=== PATIENT | male | born 1950 | race Caucasian/White ===

== ENCOUNTER 2022-10-21 21:57 | Emergency (ER) | payer MEDICARE, OTHER, SELFPAY ==
[2022-10-21] VITALS (8 sets, daily range): BP systolic 133–168; BP diastolic 79–102; PULSE 34–87; RESP 18–22; TEMP 36.5; O2SAT 91–96; BMI 32.5
--- NOTE | 2022-10-21 22:11 | DI.RAD.S_ITS ---
PATIENT NAME: KENIA LANE : 1950 EXAM DATE: 10/21/2022 22:[address] JOYCE SHAFER D.O. CC: ED TEMP MODALITY: CR PATIENT TYPE: ER CONTRAST MEDIA: STATION ID: [id number] FLUORO TIME: PROCEDURE: XR CHEST 1V INDICATIONS: chest pain TECHNIQUE: One view of the chest was acquired. COMPARISON: None. FINDINGS: Surgical changes and devices: Postsurgical changes demonstrated in the mediastinum. Lungs and pleura: Lungs are clear. No pleural effusions or pneumothorax. Mediastinum: Mediastinal contours appear normal. Heart size is normal. Bones and chest wall: No suspicious bony lesions. Overlying soft tissues appear unremarkable. IMPRESSION: 1. No acute cardiopulmonary disease. Dictated by: Josh Graf M.D. on 10/21/2022 at 23:29 Approved by: Josh Graf M.D. on 10/21/2022 at 23:34
--- NOTE | 2022-10-21 22:19 | ED.ARRPALP ---
HPI - Arrhythmia/Palpitations General Chief Complaint: Arrhythmia/Palpitations Stated Complaint: irregular heart beat/low pulse Time Seen by Provider: 10/21/22 22:19 Source: patient Mode of arrival: Ambulatory History of Present Illness HPI narrative: 72-year-old male nonsmoker with history of aortic stenosis, atrial flutter/fib, bowel replacement, warfarin presents feeling a bit weak and having a low heart rate over the past week or so. He states that his symptoms seemed to largely start since he had his metoprolol changed. He states that about a week ago he had is Metoprolol changed from Tartrate to Succinate and soon thereafter he had an episode of Afib and was cardioverted at his cardiology office. He denies dizziness, or lightheadedness. Denies chest pain, shortness of breath or nausea. He is had no vomiting or diarrhea. He denies any other medication changes and is otherwise well and free of complaint Related Data Home Medications Medication Instructions Recorded Confirmed amlodipine 5 mg tablet 5 mg PO DAILY 08/22/21 08/22/21 aspirin 81 mg tablet,delayed 81 mg PO DAILY 08/22/21 08/22/21 release (Adult Aspirin Regimen) losartan 50 mg tablet 50 mg PO BID 08/22/21 08/22/21 metoprolol tartrate 50 mg tablet 50 mg PO BID 08/22/21 08/22/21 warfarin 3 mg tablet 3 mg PO DAILY 08/22/21 08/22/21 Previous Rx's Medication Instructions Recorded magnesium oxide 400 mg PO DAILY #30 caps 10/22/22 Allergies Allergy/AdvReac Type Severity Reaction Status Date / Time No Known Drug Allergies Allergy Unverified 08/22/21 14:58 Review of Systems Review of Systems Narrative: GENERAL: Denies chills, fatigue, malaise, fever, sweats. HEENT: Denies sinus pain, ear pain, sore throat, difficulty swallowing, dizziness. RESPIRATORY: Denies dyspnea, cough, wheezing, hemoptysis, sputum. CARDIOVASCULAR: See HPI GASTROINTESTINAL: Denies nausea, vomiting, abdominal pain, diarrhea, constipation, melena. : Denies dysuria, frequency, incontinence, hematuria, urinary retention. MUSCULOSKELETAL: denies weakness, joint pain, or bony pain SKIN: Denies rash, skin lesions, or other NEUROLOGIC: Denies weakness, headache, numbness, change in speech, confusion, seizures, incoordination. PSYCHIATRIC: No concerning psychosocial issues. 12 point review of systems is negative except for those stated above Patient History Social History Smoking Status: Never smoker Smoking Status: Never smoker Substance Use Type: does not use Exam Narrative Exam Narrative: GENERAL: [72] year old patient appears stated age. Well-developed patient, in mild distress. HEAD: Atraumatic. Normocephalic. EYES: Pupils equal round and reactive. Extraocular motions intact. No scleral icterus. No injection or drainage. ENT: Nose without bleeding, purulent drainage. Throat without erythema, tonsillar hypertrophy or exudate. Airway patent. NECK: Trachea midline. Non tender CARDIOVASCULAR: Regular rate and rhythm without murmurs, gallops, or rubs. RESPIRATORY: Clear to auscultation. Breath sounds equal bilaterally. No wheezes, rales, or rhonchi. GASTROINTESTINAL: Abdomen soft, non-tender, nondistended. EXTREMITIES: No edema or joint tenderness. BACK: Nontender without deformity or crepitance. No flank tenderness. NEURO: AOx3. SKIN: No rash or erythema of visible areas Initial Vital Signs Initial Vital Signs: Vital Signs Temperature 97.7 F 10/21/22 22:11 Pulse Rate 34 L 10/21/22 22:11 Respiratory Rate 18 10/21/22 22:11 Blood Pressure 133/102 H 10/21/22 22:11 Pulse Oximetry 96 10/21/22 22:11 Oxygen Delivery Method Room Air 10/21/22 22:11 Course Orders Ordered: ED Orders 10/21/22 22:15 XR chest 1V Stat Complete Blood Count AUTO DIFF Stat Comprehensive Metabolic Panel Stat Lipase Stat Magnesium Stat Troponin & CK Cardiac Panel Stat EKG-12 Lead Stat 10/21/22 22:50 PTT Partial Thromboplastin Raimundo Stat Prothrombin Time INR Stat Discontinued Medications Aspirin (Aspirin 81 Mg Chew Tab) 324 mg PO NOW ONE Stop: 10/21/22 22:16 Last Admin: 10/21/22 22:20 Dose: Not Given Documented By: Magnesium Oxide (Magnesium Oxide 400 Mg Tablet) 400 mg PO DAILY ONE Stop: 10/22/22 00:15 Last Admin: 10/22/22 00:25 Dose: 400 mg Documented By: Consultations Consultation #1: Discussed with on-call Cardiology at [facility] (Dr. Lei). We have discussed the patient's recent clinical course including today's history and physical exam as well as EKG noting bigeminy. He is reviewed recent visits with his group and recommends patient be put back on 50 mg of metoprolol and started on magnesium 400 mg daily and instructed to follow-up as previously planned with his cardiology group Vital Signs Vital signs: Vital Signs - 8 hr 10/21/22 22:11 10/21/22 22:18 10/21/22 22:19 Temperature 97.7 F Pulse Rate 34 L 77 87 Respiratory Rate 18 18 Blood Pressure 133/102 H Pulse Oximetry 96 96 95 Oxygen Delivery Method Room Air 10/21/22 22:19 10/21/22 22:30 10/21/22 22:30 Temperature Pulse Rate 70 Respiratory Rate 19 Blood Pressure 168/79 H 151/94 H Pulse Oximetry 92 Oxygen Delivery Method 10/21/22 23:00 10/21/22 23:01 10/21/22 23:01 Temperature Pulse Rate 65 68 Respiratory Rate 22 Blood Pressure 158/101 H Pulse Oximetry 91 Oxygen Delivery Method 10/21/22 23:30 10/21/22 23:31 10/21/22 23:31 Temperature Pulse Rate 65 86 Respiratory Rate Blood Pressure 155/87 H Pulse Oximetry 91 94 Oxygen Delivery Method 10/22/22 00:00 10/22/22 00:01 10/22/22 00:01 Temperature Pulse Rate 64 62 Respiratory Rate 18 Blood Pressure 139/65 Pulse Oximetry 92 Oxygen Delivery Method 10/22/22 00:30 10/22/22 00:31 10/22/22 00:31 Temperature Pulse Rate 57 L 58 L Respiratory Rate 25 H Blood Pressure 137/70 Pulse Oximetry 93 93 Oxygen Delivery Method MDM - Arrhythmia/Palpitations Lab Data 10/21/22 22:15 10/21/22 22:15 Labs: Lab Results 10/21/22 10/21/22 10/21/22 Range/Units 22:15 22:15 22:50 WBC 9.2 (4.5-11.0) X10^3/uL RBC 4.88 (4.5-5.9) X10^6/uL Hgb 15.4 (13.5-17.5) g/dL Hct 44.3 (41-53) % MCV 90.9 (80-100) fL MCH 31.5 (26-34) PG MCHC 34.7 (30-36) % RDW 13.3 (11.6-14.8) % Plt Count 172 (150-400) X10^3/uL Neut % (Auto) 72.1 (50-75) % Lymph % (Auto) 12.6 L (25-40) % [place] % (Auto) 10.1 (3-14) % Eos % (Auto) 3.9 (2-4) % Baso % (Auto) 1.3 (0-2) % Neut # (Auto) 6600 (1195-0029) /uL Lymph # (Auto) 1200 (1926-6591) /uL [place] # (Auto) 900 (0-900) /uL Eos # (Auto) 400 (0-450) /uL Baso # (Auto) 100 (0-100) /uL PT 26.7 H (10.1-12.7) SECONDS INR 2.3 H (0.9-1.3) APTT 42 H (26-36) SECONDS Sodium 138 (137-145) mmol/L Potassium 3.9 (3.4-5.1) mmol/L Chloride 105 (98-107) mmol/L Carbon Dioxide 26 (22-32) mmol/L BUN 16 (9-20) mg/dL Creatinine 0.88 (0.66-1.25) mg/dL Estimated GFR > 60 (>60) mL/min BUN/Creatinine Ratio 18.2 (6-22) Glucose 129 H (80-110) mg/dL Calcium 8.9 (8.4-10.2) mg/dL Magnesium 2.2 (1.6-2.3) mg/dL Total Bilirubin 0.6 (0.2-1.3) mg/dL AST 33 (17-59) IU/L ALT 31 (<50) IU/L Alkaline Phosphatase 105 (38-126) U/L Total Creatine Kinase 101 (55-170) U/L Troponin I < 0.012 (0.01-0.034) ng/mL Total Protein 7.5 (6.3-8.2) g/dL Albumin 4.2 (3.5-5.0) g/dL Globulin 3.3 (1.7-4.1) g/dL Albumin/Globulin Ratio 1.3 (1.0-2.8) Lipase 88 (23-300) U/L [facility] decision making narrative: CC: 72-year-old male feeling a bit weak Complicating co-morbidities: Age, hypertension, atrial fibrillation Data collected from: Patient Medical records reviewed: Prior notes reviewed in our EMR Differential considered, but not limited to: Arrhythmia versus cardiac ischemia versus dehydration versus electrolyte abnormality versus other Exam documented above, pertinent findings include: Awake, alert and oriented, heart rate regular, lungs clear, no labored breathing, abdomen soft Lab Test results independently reviewed as above. Pertinent findings: No leukocytosis or anemia, no electrolyte abnormalities Independently reviewed EKG as above Imaging studies independently reviewed: Acute findings Consultations: Discussed with Dr. Lei at [facility], see details above Treatments: Magnesium 400 mg Discussion: Patient feeling a bit weak since change in his medications. He is found to be in bigeminy, physical exam unremarkable labs unremarkable, after consultation with cardiology recommendations are made to alter dose of metoprolol and add magnesium. Otherwise patient is well-appearing, no signs of infection, no sign of cardiac ischemia Disposition: see below, along with detailed discharge instructions that have been reviewed with patient as well as indications for ED re-evaluation and additional outpatient follow up Discharge Plan Departure Patient Disposition: Home Clinical Impression: Bigeminy Instructions: DI for Arrhythmias Activity Restrictions/Additional Instructions: *You have been diagnosed with [ventricular bigeminy ] *What to do: *Please stop reduce your Metoprolol from 100mg to 50mg daily. Please continue to take your regular medications as directed. [x ] New medication prescriptions sent to your pharmacy: [ [facility]] [ ] New medication written as a paper prescription [ ] No new medications given *Please follow up with your primary cardiac provider in 2-3 days, call for an appointment. Let them know you were seen in the Emergency Department and that we ask that you be seen in follow up. We will electronically transmit a record of today's note *Return to Emergency Department if you should have any new, worsening or concerning symptoms, such as [fever greater than 101 F, shaking chills, worsening pain, persistent vomiting or other bothersome symptoms] Prescriptions: New magnesium oxide 400 mg magnesium capsule 400 mg PO DAILY Qty: 30 0RF No Action warfarin 3 mg tablet 3 mg PO DAILY amlodipine 5 mg tablet 5 mg PO DAILY metoprolol tartrate 50 mg tablet 50 mg PO BID losartan 50 mg tablet 50 mg PO BID aspirin [Adult Aspirin Regimen] 81 mg tablet,delayed release (DR/EC) 81 mg PO DAILY Referrals: Miscellaneous,Doctor, MD [Primary Care Provider] - Stand Alone Forms: Patient Portal/API
[2022-10-21 22:28] LABS: Hematocrit 44.3 % (41-53); Hemoglobin 15.4 g/dL (13.5-17.5); Monocytes Absolute Auto 900 /uL (0-900); Red Blood Cell Count 4.88 X10^6/uL (4.5-5.9)
[2022-10-21 22:33] LABS: Add Manual Diff / Slide Review NO; Basophils Absolute Auto 100 /uL (0-100); Basophils Percent Auto 1.3 % (0-2); Eosinophils Absolute Auto 400 /uL (0-450); Eosinophils Percent Auto 3.9 % (2-4); Lymphocytes Absolute Auto 1200 /uL (1100-4500); Lymphocytes Percent Auto 12.6 % (25-40); Mean Corpuscular HGB Conc 34.7 % (30-36); Mean Corpuscular Hemoglobin 31.5 PG (26-34); Mean Corpuscular Volume 90.9 fL (80-100); Monocytes Percent Auto 10.1 % (3-14); Neutrophils Absolute Auto 6600 /uL (1500-7000); Neutrophils Percent Auto 72.1 % (50-75); Platelet Count 172 X10^3/uL (150-400); Red Cell Distribution Width 13.3 % (11.6-14.8); White Blood Cell Count 9.2 X10^3/uL (4.5-11.0)
[2022-10-21 22:42] LABS: Alanine Aminotransferase 31 IU/L (<50); Albumin 4.2 g/dL (3.5-5.0); Albumin Globulin Ratio 1.3 (1.0-2.8); Alkaline Phosphatase 105 U/L (38-126); Aspartate Aminotransferase 33 IU/L (17-59); BUN Creatinine Ratio 18.2 (6-22); Bilirubin Total 0.6 mg/dL (0.2-1.3); Blood Urea Nitrogen 16 mg/dL (9-20); Calcium 8.9 mg/dL (8.4-10.2); Carbon Dioxide 26 mmol/L (22-32); Chloride 105 mmol/L (98-107); Creatine Kinase 101 U/L (55-170); Estimated Glomerular Filt Rate > 60 mL/min (>60); Globulin 3.3 g/dL (1.7-4.1); Glucose 129 mg/dL (80-110); HEMOLYSIS < 15 (0-50); Lipase 88 U/L (23-300); Magnesium 2.2 mg/dL (1.6-2.3); Potassium 3.9 mmol/L (3.4-5.1); Sodium 138 mmol/L (137-145); Total Protein 7.5 g/dL (6.3-8.2)
[2022-10-21 22:53] LABS: Troponin I < 0.012 ng/mL (0.01-0.034)
[2022-10-21 23:02] LABS: INR 2.3 (0.9-1.3); Prothrombin Time 26.7 SECONDS (10.1-12.7)
[2022-10-21 23:05] LABS: PTT Partial Thromboplastin Tim 42 SECONDS (26-36)
[2022-10-22] VITALS: PULSE 64; RESP 18; O2SAT 92
[2022-10-22 00:01] VITALS: BP 139/65; PULSE 62
[2022-10-22] MEDS: MAGNESIUM OXIDE 400 MG TABLET PO (00:25)
[2022-10-22 00:30] VITALS: PULSE 57; O2SAT 93
[2022-10-22 00:31] VITALS: BP 137/70; PULSE 58; RESP 25; O2SAT 93
== END 2022-10-22 00:35 | disposition home or self-care (01) ==
PROVIDERS: Emergency Provider Emergency Medicine
DX: I49.8 Other specified cardiac arrhythmias (principal); R07.9 Chest pain, unspecified
CPT/HCPCS: 36415; 71045; 80053; 82550; 83690; 83735; 84484; 85025; 85610; 85730; 93005; 99284